=== PATIENT | female | born 1955 | race Hispanic/Latino ===

== ENCOUNTER 2018-07-14 11:31 | Inpatient (IN) | payer MEDICARE, MEDICAID ==
[2018-07-14 11:38] VITALS: BMI 28.3
[2018-07-14 12:21] LABS: BASO # 0.05 K/mm3 (0.0-2.0); BASO % 0.6 % (0.0-3.0); EOS # 0.3 (0.0-0.7); EOS % 3.1 % (1.5-5.0); GRAN # 5.96 (1.4-6.5); GRAN % 69.2 % (50.0-68.0); HEMOGLOBIN 10.3 g/dL (12.0-16.0); LYMPH # 1.6 (1.2-3.4); MEAN CELL VOLUME 96.5 fl (80.0-105.0); MEAN CORPUSCULAR HEMOGLOBIN 30.3 pg (25.0-35.0); MEAN CORPUSCULAR HGB CONC 31.4 g/dl (31.0-37.0); MEAN PLATELET VOLUME 8.2 fl (7.0-11.0); MONO # 0.7 (0.1-0.6); MONO % 8.1 % (1.0-6.0); RBC 3.4 10^6/uL (3.5-6.1); RED CELL DISTRIBUTION WIDTH 15.9 % (11.5-14.5); WHITE BLOOD COUNT 8.6 10^3/uL (4.5-11.0)
[2018-07-14 12:31] LABS: INR 1.01; PROTHROMBIN TIME 11.6 SECONDS (9.4-12.5)
--- NOTE | 2018-07-14 12:53 | ED PDOC ---
Arrival/HPI - General Chief Complaint: Altered Mental Status Time Seen by Provider: 07/14/18 12:02 Historian: Long Term, EMS - History of Present Illness Narrative History of Present Illness (Text): 07/14/18 12:50 A 62 year old female, whose past medical history includes dementia, is brought into the emergency department via EMS from [place] [facility] for further evaluation of increasing lethargy. The [place] [facility] notes that the patient has also been tremulous. HPI/ROS is limited due to patient's dementia. PMD: Dr. Patrick Symptom Onset: Sudden Symptom Course: Unchanged Activities at Onset: Rest, Light Context: Home (Long Term) Past Medical History - Provider Review Nursing Documentation Reviewed: Yes - Infectious Disease Hx of Infectious Diseases: None - Tetanus Immunization Tetanus Immunization: Unknown - Reproductive Menopause: Yes - Cardiac Hx Cardiac Disorders: Yes Hx Hypertension: Yes - Pulmonary Hx Respiratory Disorders: Yes Hx Asthma: Yes - Neurological Hx Neurological Disorder: Yes Hx Dementia: Yes - Endocrine/Metabolic Hx Endocrine Disorders: Yes Hx Diabetes Mellitus Type 2: Yes Hx Hypothyroidism: Yes - Hematological/Oncological Hx Blood Disorders: Yes Hx Blood Transfusions: Yes Hx Blood Transfusion Reaction: No - Integumentary Hx Dermatological Disorder: Yes Other/Comment: FROM [facility]. HOME RECORD-HX: DECUBITUS ULCER, LOWER BACK. CELLULITIS OF LEG. - Musculoskeletal/Rheumatological Hx Musculoskeletal Disorders: Yes Hx Falls: Yes Hx Rheumatoid Arthritis: Yes - Gastrointestinal Hx Gastrointestinal Disorders: Yes Hx Gastroesophageal Reflux: Yes - Genitourinary/Gynecological Hx Genitourinary Disorders: Yes Hx Incontinence: Yes Other/Comment: PT. FOR CYSTOGRAM AND GARCIA INSERTION ON 10/29/15-DX:RETENTION - Psychiatric Hx Psychophysiologic Disorder: Yes Hx Bipolar Disorder: Yes Hx Depression: Yes Hx Schizophrenia: Yes (PT. ON RISPERDAL) Hx Substance Use: No - Past Surgical History Past Surgical History: Unable to Obtain - Surgical History Other/Comment: HX. PICC LINE INSERTION 01/20/15. cystoscopies garcia changes. 01/21/16:GARCIA CHANGED. 02/29/16:GARCIA CHANGED - Anesthesia Hx Anesthesia: Yes Hx Anesthesia Reactions: No Hx Malignant Hyperthermia: No - Suicidal Assessment Feels Threatened In Home Enviroment: No Family/Social History - Physician Review Nursing Documentation Reviewed: Yes Family/Social History: No Known Family HX Smoking Status: Never Smoked Hx Alcohol Use: No Hx Substance Use: No Allergies/Home Meds Allergies/Adverse Reactions: Allergies No Known Allergies Allergy (Verified 07/14/18 11:48) Home Medications: Home Meds Medication Instructions Recorded Confirmed Ferrous Sulfate 325 mg PO DAILY 01/12/15 06/07/16 Levothyroxine [Synthroid] 75 mcg PO DAILY 01/12/15 06/07/16 Montelukast [Singulair] 10 mg PO HS 01/12/15 06/07/16 Acetaminophen 325 mg PO Q4 10/27/15 06/07/16 Cholecalciferol (Vitamin D3) 2 tab PO DAILY 10/27/15 06/07/16 [Vitamin D3] Divalproex [Depakote DR TAB] 125 mg PO DAILY 10/27/15 06/07/16 Eyelid Cleanser Combination #5 1 each TP DAILY 10/27/15 06/07/16 [Ocusoft Lid Scrub] Insulin Human Regular [Novolin R] 0 unit SC BID 10/27/15 06/07/16 Lidocaine Pad 5% 1 pad TP DAILY 10/27/15 06/07/16 [place] Carbonate [[place] 300 mg PO BID 10/27/15 06/07/16 Carbonate 300MG] Magnesium Hydroxide [Milk of 30 ml PO HS PRN 10/27/15 06/07/16 Magnesia] Methotrexate [Methotrexate] 2.5 mg PO QWK 10/27/15 06/07/16 Multivitamin [Multivitamins] 1 each PO DAILY 10/27/15 06/07/16 Oxycodone HCl/Acetaminophen 1 tab PO DAILY 10/27/15 06/07/16 [Oxycodone-Acetaminophen 5-325] Pantoprazole Sodium 40 mg PO DAILY 10/27/15 06/07/16 Pro-Stat Sugar Free 30 ml PO DAILY 10/27/15 06/07/16 Propylene Glycol/Peg 400 [Systane 1 drop OU BID 10/27/15 06/07/16 Gel Eye Drops] risperiDONE [RisperDAL Tab] 0.5 mg PO BID 10/27/15 06/07/16 Review of Systems - Review of Systems Systems not reviewed;Unavailable: Dementia Physical Exam - Physical Exam Physical Exam Limitations: Other (Dementia) Vital Signs Reviewed: Yes Vital Signs Temp Pulse Resp BP Pulse Ox 07/14/18 11:45 97.6 F 89 18 114/63 99 07/14/18 11:31 97.9 F 61 18 112/53 L 100 Temperature: Afebrile Blood Pressure: Normal Pulse: Regular Respiratory Rate: Normal Appearance: Positive for: Non-Toxic, Other (pale and chronically ill-appearing) Pain Distress: None Mental Status: No: Alert and Oriented X 3 (Alert and Oriented X 1) Finger Stick Blood Glucose: 77 - Systems Exam Head: Present: Atraumatic, Normocephalic Pupils: Present: PERRL Extroacular Muscles: Present: EOMI Conjunctiva: Present: Normal Mouth: Present: Moist Mucous Membranes Neck: Present: Normal Range of Motion Respiratory/Chest: Present: Decreased Breath Sounds (Lung hinson diminished.) Cardiovascular: Present: Regular Rate and Rhythm, Normal S1, S2. No: Murmurs Abdomen: No: Tenderness, Distention, Peritoneal Signs, Rebound, Guarding Back: Present: Normal Inspection Upper Extremity: Present: Other (Bilateral upper extremity ulnar deviation. Moves all extremities.). No: Cyanosis, Edema Lower Extremity: Present: Normal Inspection, Other (bilateral ulnar deviation). No: Edema Neurological: Present: GCS=15, CN II-XII Intact, Speech Normal, Motor Func Davon ssly Intact (moves all extremities) Skin: Present: Warm, Dry, Pale. No: Rashes Psychiatric: Present: Alert, Oriented x 3, Normal Insight, Normal Concentration Medical Decision Making ED Course and Treatment: 07/14/18 12:55 Impression: A 62 year old female is brought into the emergency department from [place] [facility] for further evaluation of lethargy. Plan: -- Head CT -- EKG -- Chest X-ray -- Labs -- Urinalysis -- Reassess and disposition Prior Visits: Notes and results from previous visits were reviewed. Progress Notes: 07/14/18 13:31 EKG shows normal sinus rhythm rate approximately 55 with primary AV block and poor R wave with no acute ST or T-wave changes. - Lab Interpretations Lab Results: 07/14/18 12:15 Lab Results 07/14/18 12:15: PT 11.6, INR 1.01, APTT 29.0 07/14/18 12:15: WBC 8.6, RBC 3.40 L, Hgb 10.3 L, Hct 32.8 L, MCV 96.5, MCH 30.3, MCHC 31.4, RDW 15.9 H, Plt Count 311, MPV 8.2, Gran % 69.2 H, Lymph % (Auto) 19.0 L, [place] % (Auto) 8.1 H, Eos % (Auto) 3.1, Baso % (Auto) 0.6, Gran # 5.96, Lymph # (Auto) 1.6, [place] # (Auto) 0.7 H, Eos # (Auto) 0.3, Baso # (Auto) 0.05 I have reviewed the lab results: Yes - RAD Interpretation Radiology Orders: 07/14/18 12:02 HEAD W/O CONTRAST [CT] Stat CHEST PORTABLE [RAD] Stat CT scan of the head as read by the radiologist is unremarkable. Chest one view shows no infiltrate effusion or cardiomegaly. Tool Design Drafter: Radiologist - EKG Interpretation Interpreted by ED Physician: Yes Type: 12 lead EKG - Scribe Statement The provider has reviewed the documentation as recorded by the Robert Brambila Provider Scribe Attestation: All medical record entries made by the Scribe were at my direction and personally dictated by me. I have reviewed the chart and agree that the record accurately reflects my personal performance of the history, physical exam, medical decision making, and the department course for this patient. I have also personally directed, reviewed, and agree with the discharge instructions and disposition. Disposition/Present on Arrival - Present on Arrival Any Indicators Present on Arrival: No History of DVT/PE: No History of Uncontrolled Diabetes: Yes Urinary Catheter: Yes (inserted 01/12/15) History of Decub. Ulcer: Yes (Sacrum) History Surgical Site Infection Following: None - Disposition Have Diagnosis and Disposition been Completed?: Yes Diagnosis: Urinary tract infection, Altered mental status Disposition: HOSPITALIZED Disposition Time: 14:01 Patient Plan: Observation Condition: FAIR Forms: [employer] ([place])
[2018-07-14 12:58] LABS: URINE APPEARANCE SL CLOUDY (CLEAR); URINE BILIRUBIN NEGATIVE (NEGATIVE); URINE BLOOD TRACE-INTACT (NEGATIVE); URINE COLOR YELLOW (YELLOW); URINE GLUCOSE (UA) NEGATIVE (NEGATIVE); URINE LEUKOCYTE ESTERASE LARGE Leu/uL (NEGATIVE); URINE PROTEIN NEGATIVE mg/dL (<30 mg/dL); URINE UROBILINOGEN 0.2 E.U./dL (<1 E.U./dL)
[2018-07-14 13:08] LABS: ALB/GLOB RATIO 0.8 (1.1-1.8); ALBUMIN 3.5 g/dL (3.0-4.8); ALT/SGPT 13 U/L (7-56); AST/SGOT 19 U/L (14-36); BLOOD UREA NITROGEN 29 mg/dL (7-21); CALCIUM 9.3 mg/dL (8.4-10.5); GFR NON-AFRICAN AMERICAN > 60
[2018-07-14 13:10] LABS: URINE BACTERIA MOD (NEG); URINE EPITHELIAL CELLS 0 - 2 /hpf (0-5); URINE RBC 0 - 2 /hpf (0-2); URINE WBC TNTC /hpf (0-6)
[2018-07-14] MEDS ORDERED: cefTRIAXone 1 gm 1 GM/100 ML BAG IVPB STA (13:14)
[2018-07-14 13:19] LABS: TROPONIN I < 0.01 ng/mL
--- NOTE | 2018-07-14 13:54 | CT ---
Date of service: 07/14/2018 PROCEDURE: CT HEAD WITHOUT CONTRAST. HISTORY: ams COMPARISON: None available. TECHNIQUE: Axial computed tomography images were obtained through the head/brain without intravenous contrast. Radiation dose: Total exam DLP = 1767.47 mGy-cm. This CT exam was performed using one or more of the following dose reduction techniques: Automated exposure control, adjustment of the mA and/or kV according to patient size, and/or use of iterative reconstruction technique. FINDINGS: HEMORRHAGE: No intracranial hemorrhage. BRAIN: No mass effect or edema. No atrophy or chronic microvascular ischemic changes. VENTRICLES: Unremarkable. No hydrocephalus. CALVARIUM: Unremarkable. PARANASAL SINUSES: Unremarkable as visualized. No significant inflammatory changes. MASTOID AIR CELLS: Unremarkable as visualized. No inflammatory changes. OTHER FINDINGS: None. IMPRESSION: No acute intracranial findings
--- NOTE | 2018-07-14 14:34 | RAD ---
Date of service: 07/14/2018 HISTORY: ams COMPARISON: 01/15/2015 FINDINGS: LUNGS: No active pulmonary disease. PLEURA: No significant pleural effusion identified, no pneumothorax apparent. CARDIOVASCULAR: No aortic atherosclerotic calcification present. Normal cardiac size. No pulmonary vascular congestion. OSSEOUS STRUCTURES: No significant abnormalities. VISUALIZED UPPER ABDOMEN: Normal. OTHER FINDINGS: None. IMPRESSION: No active disease.
--- NOTE | 2018-07-14 15:43 | CARD ---
APPROVED REPORT Date of service: 07/14/2018 EKG Measurement Heart [id number] CT 230P44 [id number] <Conclusion> Sinus bradycardia with 1st degree AV block Otherwise normal ECG
[2018-07-14] MEDS: Divalproex 250 mg DR (BID formulation) PO SCH (18:46)
[2018-07-14] MEDS: Meropenem IV 1 gm in NS 1 GM/50 ML BAG IVPB SCH ×2 (18:47→20:59)
--- NOTE | 2018-07-14 22:40 | CP.PCM.CON ---
History of Present Illness - History of Present Illness History of Present Illness: General Surgery Consult Note for Dr. Rose 62 year old female, past medical history of dementia, diabetes mellitus, bipolar disorder, GERD, presents with a chronic stage 3 sacral decubitus ulcer. She resides at [facility] where wound care is provided. Patient has dementia and is lethargic thus history was supplemented by previous hospital records. Patient was able to state she has had this ulcer for many years with de bridements in the past. She complains of localized pain in the sacral region with movement but is otherwise stable. Unable to describe the pain. Denies fever, chills, nausea, vomiting, diarrhea, SOB, chest pain, headache, or dizziness. PMH: see above PSH: Cystogram, Garcia catheter placement by urology, sacral ulcer debridements FH: noncontributory ALL: NKDA Meds: see chart SH: Denies tobacco, alcohol, drugs Review of Systems - Review of Systems Systems not reviewed;Unavailable: Dementia - Constitutional Constitutional: absent: Chills, Fever - Cardiovascular Cardiovascular: absent: Chest Pain, Palpitations - Respiratory Respiratory: absent: Cough, Dyspnea - Gastrointestinal Gastrointestinal: absent: Abdominal Pain, Diarrhea, Nausea, Vomiting - Musculoskeletal Musculoskeletal: Back Pain, Muscle Weakness - Integumentary Integumentary: Skin Ulcer, Wounds Past Patient History - Infectious Disease Hx of Infectious Diseases: None - Tetanus Immunizations Tetanus Immunization: Unknown - Past Medical History & Family History Past Medical History?: Yes - Past Social History Smoking Status: Unknown If Ever Smoked - CARDIAC Hx Cardiac Disorders: Yes Hx Hypertension: Yes - PULMONARY Hx Respiratory Disorders: Yes Hx Asthma: Yes - NEUROLOGICAL Hx Neurological Disorder: Yes Hx Dementia: Yes - ENDOCRINE/METABOLIC Hx Endocrine Disorders: Yes Hx Diabetes Mellitus Type 2: Yes Hx Hypothyroidism: Yes - HEMATOLOGICAL/ONCOLOGICAL Hx Blood Disorders: Yes - INTEGUMENTARY Hx Dermatological Problems: Yes Other/Comment: FROM [facility]. HOME RECORD-HX: DECUBITUS ULCER, LOWER BACK. CELLULITIS OF LEG. - MUSCULOSKELETAL/RHEUMATOLOGICAL Hx Musculoskeletal Disorders: Yes Hx Falls: Yes - GASTROINTESTINAL Hx Gastrointestinal Disorders: Yes Hx Gastroesophageal Reflux: Yes - GENITOURINARY/GYNECOLOGICAL Hx Genitourinary Disorders: Yes Hx Incontinence: Yes Other/Comment: PT. FOR CYSTOGRAM AND GARCIA INSERTION ON 10/29/15-DX:RETENTION - PSYCHIATRIC Hx Psychophysiologic Disorder: Yes Hx Bipolar Disorder: Yes Hx Depression: Yes Hx Schizophrenia: Yes (PT. ON RISPERDAL) - SURGICAL HISTORY Other/Comment: HX. PICC LINE INSERTION 01/20/15. cystoscopies garcia changes. 01/21/16:GARCIA CHANGED. 02/29/16:GARCIA CHANGED - ANESTHESIA Hx Anesthesia: Yes Hx Anesthesia Reactions: No Hx Malignant Hyperthermia: No Meds Allergies/Adverse Reactions: Allergies Allergy/AdvReac Type Severity Reaction Status Date / Time No Known Allergies Allergy Verified 07/14/18 11:48 - Medications Medications: Current Medications Acetaminophen (Tylenol 325mg Tab) 650 mg PO Q6H PRN PRN Reason: Pain, Mild (1-3) Amino Acid Protein (Prostat 15 G Packet) 30 gm GT BID [facility] Cholecalciferol (Vitamin D) 2,000 intlu PO DAILY [facility] Cyclosporine (Restasis) 1 ea OU Q12 [facility] Divalproex Sodium (Depakote Dr (*Bid*)) 250 mg PO BID [facility]; Protocol Last Admin: 07/14/18 18:46 Dose: 250 mg Ferrous Sulfate (Feosol) 324 mg PO DAILY [facility] Fluticasone Propionate (Flonase) 1 actuation NS DAILY [facility] Folic Acid (Folic Acid) 1 mg PO DAILY [facility] Meropenem (Merrem Iv 1 Gm Premix) 1 gm in 50 mls @ 12.5 mls/hr IVPB Q8 [facility]; Protocol Stop: 07/23/18 17:59 Last Admin: 07/14/18 20:59 Dose: 12.5 mls/hr Lactobacillus Acidophilus (Bacid Acidophilus) 1 cap PO BID [facility] Levothyroxine Sodium (Synthroid) 75 mcg PO 0600 [facility] [place] Carbonate ([place] Carbonate 300mg) 300 mg PO BID [facility] Last Admin: 07/14/18 18:46 Dose: 300 mg Multivitamins (Thera Tab) 1 tab PO 0800 [facility] Pantoprazole Sodium (Protonix Ec Tab) 20 mg PO 0600 [facility] Potassium Chloride (Klor-Con 10) 10 meq PO DAILY [facility] Risperidone (Risperdal Tab) 1 mg PO BID [facility]; Protocol Last Admin: 07/14/18 18:46 Dose: 1 mg Physical Exam - Constitutional Appears: Well, Non-toxic, No Acute Distress - Head Exam Head Exam: ATRAUMATIC, NORMAL INSPECTION, NORMOCEPHALIC - Eye Exam Eye Exam: EOMI - ENT Exam ENT Exam: Mucous Membranes Dry - Cardiovascular Exam Cardiovascular Exam: REGULAR RHYTHM - GI/Abdominal Exam GI & Abdominal Exam: Normal Bowel Sounds, Soft. absent: Tenderness - Extremities Exam Extremities exam: Positive for: pedal pulses present - Neurological Exam Neurological exam: Alert - Skin Skin Exam: Erythema Additional comments: Chronic Stage 3 Sacral Decubitus Ulcer measure 3x2x2 cm in size No active drainage or bleeding No visible bone or necrotic tissue Results - Vital Signs Recent Vital Signs: Last Vital Signs Temp 97.6 F 07/14/18 11:45 Pulse 68 07/14/18 14:17 Resp 18 07/14/18 16:35 BP 119/49 L 07/14/18 14:17 Pulse Ox 100 07/14/18 14:17 - Labs Result Diagrams: 07/14/18 12:15 07/14/18 12:45 Labs: Laboratory Results - last 24 hr 07/14/18 07/14/18 07/14/18 11:51 12:15 12:15 WBC 8.6 RBC 3.40 L Hgb 10.3 L Hct 32.8 L MCV 96.5 MCH 30.3 MCHC 31.4 RDW 15.9 H Plt Count 311 MPV 8.2 Gran % 69.2 H Lymph % (Auto) 19.0 L [place] % (Auto) 8.1 H Eos % (Auto) 3.1 Baso % (Auto) 0.6 Gran # 5.96 Lymph # (Auto) 1.6 Esmer[place] # (Auto) 0.7 H Eos # (Auto) 0.3 Baso # (Auto) 0.05 PT 11.6 INR 1.01 APTT 29.0 Sodium Potassium Chloride Carbon Dioxide Anion Gap BUN Creatinine Est GFR ( Amer) Est GFR (Non-Af Amer) POC Glucose (mg/dL) 77 Random Glucose Calcium Phosphorus Magnesium Total Bilirubin AST ALT Alkaline Phosphatase Lactate Dehydrogenase Total Creatine Kinase Troponin I Total Protein Albumin Globulin Albumin/Globulin Ratio Urine Color Urine Appearance Urine pH Ur Specific [place] Urine Protein Urine Glucose (UA) Urine Ketones Urine Blood Urine Nitrate Urine Bilirubin Urine Urobilinogen Ur Leukocyte Esterase Urine RBC Urine WBC Ur Epithelial Cells Urine Bacteria 07/14/18 07/14/18 07/14/18 12:30 12:45 17:19 WBC RBC Hgb Hct MCV MCH MCHC RDW Plt Count MPV Gran % Lymph % (Auto) [place] % (Auto) Eos % (Auto) Baso % (Auto) Gran # Lymph # (Auto) [place] # (Auto) Eos # (Auto) Baso # (Auto) PT INR APTT Sodium 139 Potassium 4.1 Chloride 103 Carbon Dioxide 30 Anion Gap 10 BUN 29 H Creatinine 0.7 Est GFR ( Amer) > 60 Est GFR (Non-Af Amer) > 60 POC Glucose (mg/dL) 73 Random Glucose 81 Calcium 9.3 Phosphorus 4.9 H Magnesium 2.4 H Total Bilirubin 0.1 L AST 19 ALT 13 Alkaline Phosphatase 88 Lactate Dehydrogenase 276 L Total Creatine Kinase < 20 L Troponin I < 0.01 Total Protein 7.7 Albumin 3.5 Globulin 4.2 Albumin/Globulin Ratio 0.8 L Urine Color Yellow Urine Appearance Sl cloudy Urine pH 7.0 Ur Specific [place] 1.010 Urine Protein Negative Urine Glucose (UA) Negative Urine Ketones Negative Urine Blood Trace-intact H Urine Nitrate Negative Urine Bilirubin Negative Urine Urobilinogen 0.2 Ur Leukocyte Esterase Large H Urine RBC 0 - 2 Urine WBC Tntc Ur Epithelial Cells 0 - 2 Urine Bacteria Mod 07/14/18 20:55 WBC RBC Hgb Hct MCV MCH MCHC RDW Plt Count MPV Gran % Lymph % (Auto) [place] % (Auto) Eos % (Auto) Baso % (Auto) Gran # Lymph # (Auto) [place] # (Auto) Eos # (Auto) Baso # (Auto) PT INR APTT Sodium Potassium Chloride Carbon Dioxide Anion Gap BUN Creatinine Est GFR ( Amer) Est GFR (Non-Af Amer) POC Glucose (mg/dL) 68 Random Glucose Calcium Phosphorus Magnesium Total Bilirubin AST ALT Alkaline Phosphatase Lactate Dehydrogenase Total Creatine Kinase Troponin I Total Protein Albumin Globulin Albumin/Globulin Ratio Urine Color Urine Appearance Urine pH Ur Specific [place] Urine Protein Urine Glucose (UA) Urine Ketones Urine Blood Urine Nitrate Urine Bilirubin Urine Urobilinogen Ur Leukocyte Esterase Urine RBC Urine WBC Ur Epithelial Cells Urine Bacteria Assessment & Plan - Assessment and Plan (Free Text) Assessment: 62F w/ chronic stage 3 sacral decubitus ulcer Plan: Local wound care and dressing changes F/u body fluid culture/smear secondary to history of ESBL Monitor vitals IV Abx per ID Further medical management per primary team Further recommendations per Dr. Milton Branham PGY1
[2018-07-14] MEDS: cycloSPORINE 0.05 % Opth Emulsion UD OU SCH (23:12)
--- NOTE | 2018-07-15 00:20 | CON ---
DATE: 07/14/2018 The patient seen in room 578, bed 2. CHIEF COMPLAINT: Change in mental status and sometimes worsening of mental status since 1- day duration. HISTORY OF PRESENT ILLNESS: A 62-year-old female, a assisted patient, who has a history of E. coli ESBL sacral wound infection in 2014; history of dementia; history of diabetes; hypertension; rheumatoid arthritis; asthma; schizophrenia; depression; bipolar; history of urinary retention, has had cystoscopy twice, both in 2015, once in 04/2016 and once in 07/2016, now she lives in a assisted. [facility] Emergency Room, the patient now is seen in 578, bed 2. She is somewhat confused, she says she knows who she is and where she is; she does not know what year it is and it is unclear what her baseline is. REVIEW OF SYSTEMS: A 14-point review of systems is performed. There has been no fevers reported. No chills. There is questionable dysuria, frequency. No abdominal pain, diarrhea or constipation. No bright red blood per rectum. No melena, dysuria, frequency or headaches. PAST MEDICAL HISTORY: Significant for diabetes, hypertension, rheumatoid arthritis, asthma, GERD, schizophrenia, depression, bipolar, urinary retention, dementia, hypothyroidism, history of ESBL E. coli sacral wound infection. PAST MEDICAL HISTORY: Significant for cystoscopy x2. ALLERGIES: THE PATIENT HAS NO KNOWN ALLERGIES. MEDICATIONS: At the assisted are reviewed and include lithium, Depakote, Flonase, iron, metformin, Risperdal, vitamins, methotrexate and insulin. PHYSICAL EXAMINATION GENERAL: She is in bed, no acute distress, however, chronically ill, debilitated appearing. VITAL SIGNS: Temperature 97.6, heart rate of 89, respiratory rate 18, blood pressure is 103/40, the patient is saturating at 99% on room air. HEENT: Unremarkable. NECK: Supple. LUNGS: Decreased breath sounds. HEART: Normal S1 and S2. ABDOMEN: Soft, nontender. No organomegaly. No rebound. No guarding. No masses. BACK: Examination of sacrum reveals a large deep sacral open ulcer. Although it has no erythema, no discharge, no signs of infection, it looks as a large decubitus ulcer, deep, clean. LABORATORY DATA: Reveals a white count of 8.6, hemoglobin of 10. Coagulation is noted. Chemistries reveal a BUN of 29, creatinine 0.7. The patient's urinalysis revealed too numerous to count wbc's, moderate bacteria, large leukocyte esterase, nitrites are negative. Chest x-ray is reported to be negative. CAT scan of the head is negative. Emergency Room documentation by Dr. Dru Celaya is reviewed and the patient had an EKG which showed sinus bradycardia, first-degree AV block, otherwise a normal EKG with a QTc of 412. ASSESSMENT AND PLAN: This is a 62-year-old female who appears much older than her stated age with dementia, diabetes, rheumatoid arthritis, asthma, hypertension, schizophrenia, depression, bipolar, history of extended-spectrum beta-lactamase Escherichia coli from a sacral wound, now admitted with: 1. Urinary tract infection. 2. A large sacral ulcer. 3. Change in mental status. We will start the patient on meropenem pending blood cultures, urine cultures, wound cultures, and we will order an HIV because of her age of 62. We will make further recommendations putting on ESBL contact precaution. We will follow with you. Case discussed with nursing staff. Case also discussed with Dr. Dru Celaya, the Emergency Room doctor. Babak Bazan MD
[2018-07-15] MEDS: Pantoprazole 20 mg EC Tab PO SCH (06:05)
[2018-07-15] MEDS: Meropenem IV 1 gm in NS 1 GM/50 ML BAG IVPB SCH ×3 (06:05→22:18)
[2018-07-15] MEDS: Levothyroxine 75 MCG TAB PO SCH (06:05)
[2018-07-15 08:24] LABS: VALPROIC ACID < 10 ug/mL (50.0-100.0)
[2018-07-15] MEDS: Lactobacillus Acidophilus 500 MU Cap PO SCH ×2 (10:44→17:38)
[2018-07-15] MEDS: Cholecalciferol 1,000 INTLU TAB PO SCH (10:45)
[2018-07-15] MEDS: Multivitamin Therapeutic Tab PO SCH (10:45)
[2018-07-15] MEDS: Potassium Chloride 10 mEq ER Tab PO SCH (10:45)
[2018-07-15] MEDS: Divalproex 250 mg DR (BID formulation) PO SCH ×2 (10:45→17:38)
[2018-07-15] MEDS: Prostat 15 g packet GT SCH ×2 (10:54→18:47)
[2018-07-15] MEDS: cycloSPORINE 0.05 % Opth Emulsion UD OU SCH ×2 (11:51→22:45)
[2018-07-15] MEDS: Fluticasone Nasal 50 mcg/Spray NS SCH (11:51)
--- NOTE | 2018-07-15 18:05 | PN ---
DATE: 07/15/2018 SUBJECTIVE: The patient is in bed in no acute distress, nontoxic. PHYSICAL EXAMINATION: Temperature is 98, blood pressure is 115/40, respiratory rate of 18. Examination of HEENT is unremarkable. Neck is supple. Lungs show decreased breath sounds. Heart exam, normal S1 and S2. Abdominal examination is soft. LABORATORY EXAMINATION: The patient's white count is 8.6, hemoglobin of 10, platelets of 311. BUN of 29, creatinine of 0.7. Microbiology reveals the blood cultures are negative and the sacral culture is pending. Review of orders reveals the patient to be on meropenem and the urine culture is pending. ASSESSMENT/PLAN: This is a 62-year-old female, correction patient, who has ESBL sacral wound infection and history of dementia, history of diabetes, hypertension, rheumatoid arthritis, asthma, schizophrenia, depression, bipolar, history of urinary retention, had cystoscopy in 2016 x2, was admitted on this admission with urinary tract infection, a large sacral ulcer and change in mental status, which is improved. Currently on meropenem. Awaiting for urine culture, final blood cultures and sacral cultures. Today is day #2 of antibiotics. Babak Bazan MD
[2018-07-16] MEDS: Meropenem IV 1 gm in NS 1 GM/50 ML BAG IVPB SCH ×3 (05:47→22:34)
[2018-07-16] MEDS: Pantoprazole 20 mg EC Tab PO SCH (05:48)
[2018-07-16] MEDS: Levothyroxine 75 MCG TAB PO SCH (05:48)
[2018-07-16 07:33] LABS: HEMOGLOBIN 9.3 g/dL (12.0-16.0); MEAN CELL VOLUME 96.5 fl (80.0-105.0); MEAN CORPUSCULAR HEMOGLOBIN 29.3 pg (25.0-35.0); MEAN CORPUSCULAR HGB CONC 30.4 g/dl (31.0-37.0); MEAN PLATELET VOLUME 8.1 fl (7.0-11.0); RBC 3.17 10^6/uL (3.5-6.1); RED CELL DISTRIBUTION WIDTH 16.1 % (11.5-14.5); WHITE BLOOD COUNT 7.1 10^3/uL (4.5-11.0)
[2018-07-16 07:46] LABS: BLOOD UREA NITROGEN 24 mg/dL (7-21); CALCIUM 9.1 mg/dL (8.4-10.5); GFR NON-AFRICAN AMERICAN > 60; HDL CHOLESTEROL 44 mg/dL (29-60); IRON 26 ug/dL (45-180)
[2018-07-16 07:56] LABS: % IRON SATURATION 10 % (20-55); TOTAL IRON BINDING CAPACITY 269 ug/dL (265-497)
[2018-07-16 08:03] LABS: LDL CHOLESTEROL 53 mg/dL (0-129)
[2018-07-16] MEDS: Multivitamin Therapeutic Tab PO SCH (08:11)
--- NOTE | 2018-07-16 09:24 | HP ---
DATE OF EXAM: 07/15/2018 The patient was seen and examined at the bedside on 07/15/2018. CHIEF COMPLAINT: Altered mental status. HISTORY OF PRESENT ILLNESS: Ms. Kristen Sewell, 62 years old female with past medical history of dementia, multiple medical problems, hypertension, also has infection of the eyes, sacral decubitus ulcer, resident of [facility], came with increasing in lethargy, shortness of breath. According to alf, the patient was tremulous. We admitted the patient. Urinalysis showed the patient has UTI, IV antibiotics. PAST MEDICAL HISTORY: Hypertension, asthma, dementia, diabetes mellitus type 2, hypothyroidism, history of fall, rheumatoid arthritis, gastroesophageal reflux disease, urinary incontinence, genitourinary disorder, bipolar disorder, depression, and history of cystoscopy. FAMILY HISTORY: Father and mother, noncontributory. HABITS: Never smoked. No drugs. No ethanol. ALLERGIES: PATIENT IS NOT ALLERGIC WITH ANY MEDICATIONS. HOME MEDICATIONS: Ferrous sulfate, Synthroid, Singulair, acetaminophen, vitamin D, Depakote, insulin, lithium, magnesium, methotrexate, and oxycodone. REVIEW OF SYSTEMS: The patient was seen and examined at the bedside in her room, looking comfortable. No fever. No chills. No nausea, vomiting, or diarrhea. No headache. No dizziness. No chest pain. No palpitation. Mental level is better. PHYSICAL EXAMINATION: VITAL SIGNS: Temperature 98.3, pulse 85, blood pressure 101/59, and respiratory rate 20. HEENT: Head; normocephalic and atraumatic. Eyes; PERRLA. Extraocular muscles are intact. Conjunctivae clear. Nose patent. NECK: Supple. No carotid bruit, JVD or thyromegaly. CHEST: Bilaterally symmetrical. HEART: S1 and S2 positive. LUNGS: Clear to auscultation. ABDOMEN: Soft. Bowel sounds present. No organomegaly. EXTREMITIES: No edema. No cyanosis. NEUROLOGIC: The patient is awake, alert, and moving all four extremities. No focal deficit. LABORATORY DATA: White blood cell 8.6, hemoglobin 10.2, hematocrit 32.8, and platelets 311,000. Sodium 139, potassium 4.1, BUN 29, creatinine 0.1, and glucose is 73. ASSESSMENT AND PLAN: Ms. Kristen Sewell is 62 years lady with anemia, hyperphosphatemia, hypermagnesemia, bilirubin, abnormal liver function test, has urinary tract infection, hematuria, seen by Dr. Babak Bazan, Infectious Disease. The patient has extended-spectrum beta-lactamase sacral wound infection, treated for dementia, rheumatoid arthritis, asthma, schizophrenia, depression, and cystoscopy 2 years ago. The patient admitted with urinary tract infection, large sacral decubitus ulcer, changes in mental level, started on meropenem, awaiting for urine culture and final blood culture antibiotics. Appreciate Dr. Bazan, , GI and DVT prophylaxes. Repeat labs. Continue antibiotics as per Infection Disease. Nora Patrick MD
[2018-07-16] MEDS: Lactobacillus Acidophilus 500 MU Cap PO SCH ×2 (10:03→17:30)
[2018-07-16] MEDS: Divalproex 250 mg DR (BID formulation) PO SCH ×2 (10:03→17:33)
[2018-07-16] MEDS: Fluticasone Nasal 50 mcg/Spray NS SCH (10:04)
[2018-07-16] MEDS: Prostat 15 g packet GT SCH ×2 (10:39→18:40)
[2018-07-16] MEDS: Potassium Chloride 10 mEq ER Tab PO SCH (11:07)
[2018-07-16] MEDS: Vancomycin 1gm in NS 250ml 1 GM/250 ML BAG IVPB SCH ×2 (11:08→17:34)
[2018-07-16] MEDS: Cholecalciferol 1,000 INTLU TAB PO SCH (11:08)
[2018-07-16] MEDS: cycloSPORINE 0.05 % Opth Emulsion UD OU SCH ×2 (11:08→22:35)
[2018-07-16] MEDS: Insulin Reg-LOW-Coverage SC SCH ×3 (11:26→22:18)
[2018-07-16 13:22] LABS: FOLATE > 20.0 ng/mL
--- NOTE | 2018-07-16 19:02 | CP.PCM.PN ---
Subjective - Date & Time of Evaluation Date of Evaluation: 07/16/18 Time of Evaluation: 11:00 - Subjective Subjective: Afebrile, comfortable. Objective - Vital Signs/Intake and Output Vital Signs (last 24 hours): Temp Pulse Resp BP Pulse Ox 98.3 F 85 20 101/59 L 100 07/16/18 14:00 07/16/18 14:00 07/16/18 14:00 07/16/18 14:00 07/16/18 14:00 - Medications Medications: Current Medications Acetaminophen (Tylenol 325mg Tab) 650 mg PO Q6H PRN PRN Reason: Pain, Mild (1-3) Last Admin: 07/16/18 17:35 Dose: 650 mg Amino Acid Protein (Prostat 15 G Packet) 30 gm GT BID [facility] Last Admin: 07/16/18 18:40 Dose: 30 gm Cholecalciferol (Vitamin D) 2,000 intlu PO DAILY [facility] Last Admin: 07/16/18 11:08 Dose: 2,000 intlu Cyclosporine (Restasis) 1 ea OU Q12 [facility] Last Admin: 07/16/18 11:08 Dose: 1 ea Divalproex Sodium (Depakote Dr (*Bid*)) 250 mg PO BID [facility]; Protocol Last Admin: 07/16/18 17:33 Dose: 250 mg Ferrous Sulfate (Feosol) 324 mg PO DAILY [facility] Last Admin: 07/16/18 10:03 Dose: 324 mg Fluticasone Propionate (Flonase) 1 actuation NS DAILY [facility] Last Admin: 07/16/18 10:04 Dose: 1 drop Folic Acid (Folic Acid) 1 mg PO DAILY [facility] Last Admin: 07/16/18 11:11 Dose: 1 mg Meropenem (Merrem Iv 1 Gm Premix) 1 gm in 50 mls @ 12.5 mls/hr IVPB Q8 [facility]; Protocol Stop: 07/23/18 17:59 Last Admin: 07/16/18 13:47 Dose: 12.5 mls/hr Vancomycin HCl (Vancomycin 1gm) 1 gm in 250 mls @ 167 mls/hr IVPB BID [facility]; Protocol Last Admin: 07/16/18 17:34 Dose: 167 mls/hr Insulin Human Regular (Humulin R Low) 0 units SC ACHS [facility]; Protocol Last Admin: 07/16/18 17:33 Dose: Not Given Lactobacillus Acidophilus (Bacid Acidophilus) 1 cap PO BID [facility] Last Admin: 07/16/18 17:30 Dose: 1 cap Levothyroxine Sodium (Synthroid) 75 mcg PO 0600 [facility] Last Admin: 07/16/18 05:48 Dose: 75 mcg [place] Carbonate ([place] Carbonate 300mg) 300 mg PO BID [facility] Last Admin: 07/16/18 17:34 Dose: 300 mg Multivitamins (Thera Tab) 1 tab PO 0800 [facility] Last Admin: 07/16/18 08:11 Dose: 1 tab Pantoprazole Sodium (Protonix Ec Tab) 20 mg PO 0600 [facility] Last Admin: 07/16/18 05:48 Dose: 20 mg Potassium Chloride (Klor-Con 10) 10 meq PO DAILY [facility] Last Admin: 07/16/18 11:07 Dose: 10 meq Risperidone (Risperdal Tab) 1 mg PO BID [facility]; Protocol Last Admin: 07/16/18 17:34 Dose: 1 mg - Labs Labs: 07/16/18 07:00 07/16/18 07:00 PT 11.6 SECONDS (9.4-12.5) 07/14/18 12:15 INR 1.01 07/14/18 12:15 APTT 29.0 Seconds (25.1-36.5) 07/14/18 12:15 - Constitutional Appears: Chronically Ill - Head Exam Head Exam: NORMAL INSPECTION - Respiratory Exam Respiratory Exam: Decreased Breath Sounds - Cardiovascular Exam Cardiovascular Exam: +S1, +S2 - GI/Abdominal Exam GI & Abdominal Exam: Soft. absent: Tenderness Assessment and Plan - Assessment and Plan (Free Text) Plan: Assessment Stage 3 sacral decubitus ulcer, with previous history of ESBL-producing organism dementia schizophrenia rheumatoid arthritis HTN DM asthma depression history of urinary retention Plan continue Merrem day 4 pending final wound cx results follow up further plans of Podiatry
--- NOTE | 2018-07-17 02:52 | PN ---
DATE: 07/16/2018 SUBJECTIVE: The patient was seen and examined on the bedside on 07/16/2018, looking comfortable. No nausea, vomiting, diarrhea. No hematuria or hematochezia. No swelling of the legs. No chest pain. No palpitation. No headache. No dizziness. No fever. No chills. PHYSICAL EXAMINATION: VITAL SIGNS: Temperature 98.6, pulse 85, respirations 20, blood pressure 101/59, pulse oximetry 100. HEENT: Head; normocephalic, atraumatic. Eyes; PERRLA. Extraocular muscles intact. Conjunctivae clear. Nose patent. Mucous membrane moist. NECK: Supple. No carotid bruit. No JVD or thyromegaly. CHEST: Bilaterally symmetrical. HEART: S1 and S2 positive. LUNGS: Clear to auscultation. ABDOMEN: Soft. Bowel sounds positive. No organomegaly. EXTREMITIES: No edema. No cyanosis. NEUROLOGIC: The patient is awake and alert. Follows simple commands. MEDICATIONS: Tylenol, , vitamin D, cyclosporine, Depakote, Feosol, Flonase, folic acid, Merrem, vancomycin, insulin, levothyroxine, lithium, potassium. LABORATORY DATA: White blood cell is 7.1, hemoglobin 9.2, hematocrit 38.6, platelets 295. Sodium 113, potassium 4.1, BUN 25, creatinine 0.8, glucose 84. ASSESSMENT AND PLAN: Ms. Kristen Sewell 62 years old female with anemia, stage 3 sacral decubitus ulcer with previous history of extended-spectrum beta-lactamase producing organism, dementia, conjunctivitis, schizophrenia, rheumatoid arthritis, hypertension, diabetes mellitus, asthma, depression, history of urinary tract infection. Getting Merrem, day 4. Pending on final wound culture results. Follow up with labs. Gastrointestinal and deep venous thrombosis prophylaxes. Repeat labs. CAT scan of head reviewed. We will follow up. Nora Patrick MD
[2018-07-17] MEDS: Meropenem IV 1 gm in NS 1 GM/50 ML BAG IVPB SCH ×2 (05:35→14:47)
[2018-07-17] MEDS: Pantoprazole 20 mg EC Tab PO SCH (05:35)
[2018-07-17] MEDS: Levothyroxine 75 MCG TAB PO SCH (05:35)
[2018-07-17] MEDS: Insulin Reg-LOW-Coverage SC SCH ×2 (08:04→14:43)
[2018-07-17] MEDS: Multivitamin Therapeutic Tab PO SCH (08:39)
[2018-07-17 08:51] VITALS: RESP 18
[2018-07-17] MEDS: Lactobacillus Acidophilus 500 MU Cap PO SCH (10:35)
[2018-07-17] MEDS: Divalproex 250 mg DR (BID formulation) PO SCH (10:36)
[2018-07-17] MEDS: Potassium Chloride 10 mEq ER Tab PO SCH (10:37)
[2018-07-17] MEDS: Prostat 15 g packet GT SCH (10:38)
[2018-07-17] MEDS: cycloSPORINE 0.05 % Opth Emulsion UD OU SCH (10:48)
[2018-07-17] MEDS: Cholecalciferol 1,000 INTLU TAB PO SCH (10:48)
[2018-07-17] MEDS: Vancomycin 1gm in NS 250ml 1 GM/250 ML BAG IVPB SCH (10:48)
[2018-07-17] MEDS: Fluticasone Nasal 50 mcg/Spray NS SCH (10:49)
[2018-07-17 15:35] VITALS: BP 115/56; PULSE 15; TEMP 98.3; O2SAT 97
--- NOTE | 2018-07-17 16:20 | CP.PCM.PN ---
Subjective - Date & Time of Evaluation Date of Evaluation: 07/17/18 Time of Evaluation: 11:20 - Subjective Subjective: Comfortable, no fevers, no diarrhea, no vomiting. Objective - Vital Signs/Intake and Output Vital Signs (last 24 hours): Temp Pulse Resp BP Pulse Ox 98.3 F 85 20 101/59 L 100 07/16/18 14:00 07/16/18 14:00 07/16/18 14:00 07/16/18 14:00 07/16/18 14:00 - Medications Medications: Current Medications Acetaminophen (Tylenol 325mg Tab) 650 mg PO Q6H PRN PRN Reason: Pain, Mild (1-3) Last Admin: 07/16/18 17:35 Dose: 650 mg Amino Acid Protein (Prostat 15 G Packet) 30 gm GT BID [facility] Last Admin: 07/16/18 18:40 Dose: 30 gm Cholecalciferol (Vitamin D) 2,000 intlu PO DAILY [facility] Last Admin: 07/16/18 11:08 Dose: 2,000 intlu Cyclosporine (Restasis) 1 ea OU Q12 [facility] Last Admin: 07/16/18 11:08 Dose: 1 ea Divalproex Sodium (Depakote Dr (*Bid*)) 250 mg PO BID [facility]; Protocol Last Admin: 07/16/18 17:33 Dose: 250 mg Ferrous Sulfate (Feosol) 324 mg PO DAILY [facility] Last Admin: 07/16/18 10:03 Dose: 324 mg Fluticasone Propionate (Flonase) 1 actuation NS DAILY [facility] Last Admin: 07/16/18 10:04 Dose: 1 drop Folic Acid (Folic Acid) 1 mg PO DAILY [facility] Last Admin: 07/16/18 11:11 Dose: 1 mg Meropenem (Merrem Iv 1 Gm Premix) 1 gm in 50 mls @ 12.5 mls/hr IVPB Q8 [facility]; Protocol Stop: 07/23/18 17:59 Last Admin: 07/16/18 13:47 Dose: 12.5 mls/hr Vancomycin HCl (Vancomycin 1gm) 1 gm in 250 mls @ 167 mls/hr IVPB BID [facility]; Protocol Last Admin: 07/16/18 17:34 Dose: 167 mls/hr Insulin Human Regular (Humulin R Low) 0 units SC ACHS [facility]; Protocol Last Admin: 07/16/18 17:33 Dose: Not Given Lactobacillus Acidophilus (Bacid Acidophilus) 1 cap PO BID [facility] Last Admin: 07/16/18 17:30 Dose: 1 cap Levothyroxine Sodium (Synthroid) 75 mcg PO 0600 [facility] Last Admin: 07/16/18 05:48 Dose: 75 mcg [place] Carbonate ([place] Carbonate 300mg) 300 mg PO BID [facility] Last Admin: 07/16/18 17:34 Dose: 300 mg Multivitamins (Thera Tab) 1 tab PO 0800 [facility] Last Admin: 07/16/18 08:11 Dose: 1 tab Pantoprazole Sodium (Protonix Ec Tab) 20 mg PO 0600 [facility] Last Admin: 07/16/18 05:48 Dose: 20 mg Potassium Chloride (Klor-Con 10) 10 meq PO DAILY [facility] Last Admin: 07/16/18 11:07 Dose: 10 meq Risperidone (Risperdal Tab) 1 mg PO BID [facility]; Protocol Last Admin: 07/16/18 17:34 Dose: 1 mg - Labs Labs: 07/16/18 07:00 07/16/18 07:00 PT 11.6 SECONDS (9.4-12.5) 07/14/18 12:15 INR 1.01 07/14/18 12:15 APTT 29.0 Seconds (25.1-36.5) 07/14/18 12:15 - Constitutional Appears: Chronically Ill - Head Exam Head Exam: NORMAL INSPECTION - Respiratory Exam Respiratory Exam: Decreased Breath Sounds - Cardiovascular Exam Cardiovascular Exam: +S1, +S2 - GI/Abdominal Exam GI & Abdominal Exam: Soft. absent: Tenderness Assessment and Plan - Assessment and Plan (Free Text) Plan: Assessment Stage 3 sacral decubitus ulcer, with previous history of ESBL-producing organism consider UTI with Group B Strep dementia schizophrenia rheumatoid arthritis HTN DM asthma depression history of urinary retention Plan on Merrem day 5 - can switch to Rocephin for another 5-7 days
== END 2018-07-17 16:59 | DRG 689 ==
LOC: ED 11:31 → ERH 14:03 → 5RSO 15:01 → OBSVTOIN 07-15 23:11
PROVIDERS: ADMIT Internal Medicine; ATTEND Internal Medicine
DX: N39.0 Urinary tract infection, site not specified (principal); L89.153 Pressure ulcer of sacral region, stage 3; R41.82 Altered mental status, unspecified; F03.90 Unspecified dementia, unspecified severity, without behavioral disturbance, psychotic disturbance, mood disturbance, and anxiety; I10 Essential (primary) hypertension; E03.9 Hypothyroidism, unspecified; E11.9 Type 2 diabetes mellitus without complications; F31.9 Bipolar disorder, unspecified; M06.9 Rheumatoid arthritis, unspecified; E83.41 Hypermagnesemia; E83.39 Other disorders of phosphorus metabolism; R94.5 Abnormal results of liver function studies; R31.9 Hematuria, unspecified; F20.9 Schizophrenia, unspecified; D64.9 Anemia, unspecified; K21.9 Gastro-esophageal reflux disease without esophagitis; Z79.4 Long term (current) use of insulin; Z86.19 Personal history of other infectious and parasitic diseases; Z87.440 Personal history of urinary (tract) infections; B95.1 Streptococcus, group B, as the cause of diseases classified elsewhere; Z87.09 Personal history of other diseases of the respiratory system